=== PATIENT | female | born 1945 | race Caucasian/White ===

== ENCOUNTER 2020-12-02 18:09 | Inpatient (IN) | payer MEDICARE, OTHER ==
[~2020-12-02] VITALS: Ht 162.6 cm; Wt 98.4 kg
[2020-12-02 22:39] LABS: BASOPHILS ABSOLUTE AUTO 0.03 K/mm3 (0.00-0.23); BASOPHILS PERCENT AUTO 0 % (0-2); EOSINOPHILS ABSOLUTE AUTO 0.01 K/mm3 (0.00-0.68); EOSINOPHILS PERCENT AUTO 0 % (0-6); Hematocrit 35.8 % (33.0-51.0); Hemoglobin 11.4 g/dL (11.5-16.0); IMMATURE GRAN ABSOLUTE AUTO 0.04 K/mm3 (0.00-0.10); IMMATURE GRAN PERCENT AUTO 0 % (0-1); LYMPHOCYTES ABSOLUTE AUTO 0.55 K/mm3 (0.84-5.20); LYMPHOCYTES PERCENT AUTO 5 % (21-46); MONOCYTES PERCENT AUTO 4 % (4-13); Mean Corpuscular HGB 31.4 pg (26.0-34.0); Mean Corpuscular HGB Conc 31.8 g/dL (31.5-36.5); Mean Corpuscular Volume 99 fL (80-100); Mean Platelet Volume 9.9 fL (9.1-12.4); NEUTROPHILS ABSOLUTE AUTO 9.88 K/mm3 (1.96-9.15); NEUTROPHILS PERCENT AUTO 91 % (41-73); Platelet Count 255 K/mm3 (150-400); RDW Standard Deviation 47.4 fL (35.1-46.3); Red Blood Cell Count 3.63 M/mm3 (3.80-5.20); White Blood Cell Count 10.91 K/mm3 (4.00-11.30)
[2020-12-02 22:57] LABS: Influenza A, PCR NEGATIVE (NEGATIVE); Influenza B, PCR NEGATIVE (NEGATIVE); Resp Syncytial Virus, PCR NEGATIVE (NEGATIVE); SARS-Cov-2 (COVID-19) PCR, MMC NEGATIVE (NEGATIVE)
[2020-12-02 22:59] LABS: Alanine Aminotransfer (ALT/SGP 17 U/L (12-78); Albumin, Blood 3.8 g/dL (3.4-5.0); Albumin/Globulin Ratio 0.9 (0.8-1.8); Alk Phos 79 U/L (50-136); Anion Gap 8 mmol/L (6-16); Aspartate Aminotrans (AST/SGOT 11 U/L (12-37); Bilirubin, Total 0.5 mg/dL (0.1-1.0); Blood Urea Nitrogen 26 mg/dL (8-24); Bun/Creatinine Ratio 18.8 (12.0-20.0); CO2, Blood 26 mmol/L (21-32); Calcium, Blood 9.6 mg/dL (8.5-10.1); Chloride, Blood 108 mmol/L (98-108); Creatinine, Blood 1.38 mg/dL (0.40-1.00); Globulin, Blood 4.3 g/dL (2.2-4.0); Glomerular Filtration Rate 40 (60-); Glucose, Blood 154 mg/dL (70-99); Potassium, Blood 4.4 mmol/L (3.5-5.5); Sodium, Blood 142 mmol/L (136-145); Total Protein, Blood 8.1 g/dL (6.4-8.2); Troponin I <0.015 ng/mL (0.000-0.040)
--- NOTE | 2020-12-03 03:06 | NUR ---
ADMIT PT ARRIVED FROM PACU ROUGHLY @0255, RECIEVED REPORT FROM DIANA PETERSON. 4 PER SLIDE TRANSFER TO NEW BED. PT RECIEVED LABETALOL & PAIN MEDS IN PACU BEFORE ARRIVING TO FLOOR. ORIENTED PT TO & CALL LIGHT. WILL MONITOR.
[2020-12-03 05:19] LABS: Creatinine, Blood 1.2 mg/dL (0.40-1.00); Potassium, Blood 4.4 mmol/L (3.5-5.5)
--- NOTE | 2020-12-03 06:36 | NUR ---
SHIFT SUMMARY ADMITTED FOR SBO R/T INSICIONAL HERNIA, HAD LAPRASCOPIC REDUCTION THIS SHIFT. POD #0. 3 SMALL INSICIONS TO ABD, TOOK PICS & PLACED IN CHART. AOX3, FORGETFUL @TIMES, STATES SHE HAS MEMORY ISSUES & CAN'T RECALL MEDICATIONS. BP ELEVATED HAS BEEN ELEVATED RANGING 169 SYS-189 SYS, MEDICATED FOR PAIN & BP DECREASED TO 169 SYS, WILL INFORM ONCOMING NURS PT HAS NO PRN BP MEDS & PT DENIES SHE USUALLY TAKES BP MEDS. SPO2 DROPS TO 88% ON 1L c PAIN MEDS, INCREASED O2 TO 2L, ON CONT PULSE OX. PT DENIES DYSPNEA & STATES SHE DOES NOT WEAR O2 OR CPAP @HOME. LUNGS COARSE c NONPRODUCTIVE WET SOUNDING COUGH. TELE NSR HR 90'S. NG TUBE PLACED IN ER TO L NARES BY DR ANDRADE, CURRENTLY CLAMPED. NPO @THIS TIME. MAURICE PLACED IN OR, CLEAR YELLOW URINE. PT REPORTS SHE IS NORMALLY INCONT. W/C BOUND @BASELINE R/T LYMPHEDEMA IN BLE. BLE ARE SWOLLEN, RED & FLAKY, LLE HAS SMALL WOUND, CLEANSED, PLACED BANDAGE & TOOK PIC. CALL LIGHT & BED ALARM IN PLACE.
[2020-12-03] MEDS ORDERED: ALEN70 PO (08:06)
[2020-12-03] MEDS ORDERED: ASPI81CH PO (08:07)
[2020-12-03] MEDS ORDERED: ATOR20 PO (08:07)
[2020-12-03] MEDS ORDERED: FAMO20 PO (08:08)
[2020-12-03] MEDS ORDERED: GABA300 PO (08:08)
[2020-12-03] MEDS ORDERED: B-121000 MC3 PO (08:08)
[2020-12-03] MEDS ORDERED: MULVITA PO (08:09)
[2020-12-03] MEDS ORDERED: TRAZ50 PO (08:10)
[2020-12-03] MEDS ORDERED: OMEP20ER PO (08:10)
--- NOTE | 2020-12-03 10:36 | NUR ---
LEFT MESSAGE FOR DR ANDRADE PER DR WHITTINGTON'S REQUEST ASKING IF WE STILL NEED NGT AND IF IT IS OK TO ADVANCE DIET, AW CALLBACK
--- NOTE | 2020-12-03 19:29 | NUR ---
SHIFT SUMMARY JOHNNY'S POST OP VS WERE STABLE. MAURICE DC'D AT 1630, PT INCONTINENT/CONTINENT. UP TO CHAIR WITH AO1 AND GAIT BELT. LAP SITES ON ABD C/D/I. ON 4L WITH BED MOBILITY AND ACTIVITY. DR ANDRADE CAME BY MID-MORNING AND ORDERED NGT TO LCWS. THIS WAS DONE, GOT 30ML OUT FROM THEN UNTIL HE CAME BACK AT 1430. HE PULLED OUT NGT AT BEDSIDE. STARTED ON CLEARS DIET PER DR ANDRADE, TOLERATING WELL. GOT TYLENOL AND TRAMADOL FOR PAIN TO GOOD EFFECT. DAUGHTER VISITED. CALL LIGHT IN REACH, REPORT GIVEN TO NIGHT NURSE
--- NOTE | 2020-12-04 06:03 | NUR ---
SHIFT SUMMARY NO ACUTE CHANGES TO REPORT THIS SHIFT PT HAS RESTED MOST OF THE NIGHT. PT HAS COMPLAINTS OF ABD X1 THIS SHIFT THAT IS RELEIVED WITH TYLENOL. PT STATES THAT THE PAIN IN HER ABD IS IMPROVING. STILL NO BOWEL MOVEMENT, BUT PT IS PASSING GAS. PT UP TO BS THIS SHIFT. PT IS VERY WEAK AND DECONDITIONED REQUIRING A HEAVY 2 PA WITH GAIT BELT AND FWW. INCONTINENT AT TIMES. NO COMPLAINTS N/V THIS SHIFT. ABD DRESSING INTACT. RESTFUL NIGHT OVERALL. BED IN LOWEST POSITION, CALL LIGHT WITHIN REACH.
--- NOTE | 2020-12-04 17:27 | NUR ---
PT QUITE PLEASANT TODAY. IN TO VISIT TODAY. HEADACHE THIS AM. ABD INCISIONS CDI. [address]. NO NEW CONCERNS NOTED TODAY. PT SITTING IN CHAIR WATCHING TV AND PLAYING Etaphase ON PHONE MUCH OF DAY. BED IN LOW POSITION, CALL LITE IN REACH, CALLS APPROP
--- NOTE | 2020-12-05 05:10 | NUR ---
SISTER SUPERIOR SUMMARY PT A&OX4, FORGETFUL AT TIMES. ABLE TO MAKE NEEDS KNOWN. PLEASANT AND COOPERATIVE TO CARE. PT MEDICATED FOR PAIN PER EMAR. NO C/O CP, SOB, OR N&V. NO ACUTE CHANGES NOTED TO PT. CALM AND RESTED IN BED T/O SHIFT. BED AT LOWEST POSITION. CALL LIGHT WITHIN REACH.
--- NOTE | 2020-12-05 17:17 | NUR ---
PT HAS ABD PAD APPLIED TO LOWER INCISION AFTER DR TOOK OFF STERI STRIPS. SMALL AMOUNT OF DRAINAGE, DOES NOT APPEAR INFECTED. PT NOT REPORTING ANY PAIN OR DISCOMFORT. ABD PAD APPLIED OVER 4X4 GAUGE. CHANGED EACH SHIFT OR PRN. PT CONTINUES TO HAVE 3+ BI LAT EDEMA TO LOWER EXTREMITIES. SHE COMPLAINS WHEN LEGS ARE ELEVATED IN RECLINER BUT IS COMPLIANT. CALL LIGHT WITHIN REACH, WILL CONTINIUE TO MONITOR.
--- NOTE | 2020-12-05 18:18 | NUR ---
ADMIT: 12/02/20 DISCHARGE: DX: Small bowel obstruction CC: FRANCISCO CALL: RESIDENCE: Home with spouse CAREGIVER: Christal Rutledge, Child, Yaniv Wakefield, Spouse / Partner, DX: Anemia, HTN, CKD-stage 3, see list DME: motorized scooter, wheelchair cushion, walker, DM shoes CCM: none HOME HEALTH: [facility]- 2019 SUMMARY: 12/02/20 12/05/[address] Vizcarra, no acute events, tolerated some regular diet, passing flatus, no BM, can discharge post BM. ETA discharge post bm, next couple days?? cp 12/04/[address] Vizcarra and Dr Estrada. no eta for discharge at this time 1: Incarcerated hernia A/P: with small bowel obstruction
--- NOTE | 2020-12-06 03:51 | NUR ---
AGENT BASED MODELER SUMMARY PT A&OX4, ABLE TO MAKE NEEDS KNOWN, PLEASANT AND COOPERATIVE TO CARE. NO ACUTE CHANGES NOTED TO PT THIS SHIFT. PT MEDICATED FOR ABD INCISION PAIN PER EMAR. NO C/O CP, SOB OR N&V. PT CALM AND RESTED IN BED T/O SHIFT. BED AT LOWEST POSITION, CALL LIGHT WITHIN REACH.
[2020-12-06] MEDS ORDERED: ACET325 PO (13:46)
[2020-12-06] MEDS ORDERED: CEPH500 PO (13:48)
[2020-12-06] MEDS ORDERED: TOPI25C PO (13:50)
[2020-12-06] MEDS ORDERED: HYDROCODONE-AC1 EA11 PO (13:59)
[2020-12-06] MEDS ORDERED: TRAM50 PO (13:59)
--- NOTE | 2020-12-06 16:31 | NUR ---
DISCHARGE SUMMARY PT POST OP FOR A LAPAROSCOPIC HERNIA REPAIR. PT A/O X3 AND HAS MOMENTS OF CONFUSION AND HELPLESSNESS. PT A 1-2 ASSIST TO THE BSC WITH A WALKER AND A GB. INCISION SITES ARE C/D/I WITH STERI STRIPS AND GAUZE IN PLACE. MINIMAL BRUISING NOTED. PT DOES NOT C/O PAIN RELATED TO THE HERNIA REPAIR. SHE HAS CHRONIC LYMPHEDEMA AND SWELLING IN HER LEGS THAT IS PAINFUL. SHE ALSO HAS NEUROPATHY. DAUGHTER CAME IN TO BRING PT HOME AT DISCHARGE AND EXPRESSED MANY CONCERNS. SHE EXPRESSED CONCERNS RELATED TO CARING FOR THE PT AT HOME DUE TO FALL RISK AND MOBILITY ISSUES. SHE ALSO EXPRESSED CONCERNS RELATED TO BEING ABLE TO AFFORD PRESCRIPTIONS. MARY JANE SEGURA CAME AND SPOKE TO THE PATIENT AND DAUGHTER. IT WAS DETERMINED THAT O/T RECOMMENDED SNF PLACEMENT AND P/T RECOMMENDED HOME HEALTH. PT'S DAUGHTER STATED THAT "SHE WOULD TAKE THE PATIENT HOME AND FOLLOW UP WITH THE DOCTOR ON THE MATTER." SHE ALSO AGREED TO THE PT RECEIVING HOME HEALTH. MARY JANE RESEARCHED PRESCRIPTION DISCOUNTS FOR PT AND DAUGHTER. PT WENT HOME IN HER MOTORIZED WHEELCHAIR AND DROVE THE WHEELCHAIR HERSELF OUT OF THE HOSPITAL. IV MICKEY'D WNL.
--- NOTE | 2020-12-06 16:37 | NUR ---
ADMIT: 12/02/20 DISCHARGE: 12/06/20 DX: Small bowel obstruction CC: cpeabody FRANCISCO CALL: Met with Reina and daughter RESIDENCE: Home with spouse, daughter and her CAREGIVER: Christal Rutledge, Child, Yaniv Wakefield, Spouse / Partner, DX: Anemia, HTN, CKD-stage 3, see list DME: motorized scooter, wheelchair cushion, walker, DM shoes CCM: none HOME HEALTH: [facility]- 2019 order home health 12/06/20 SUMMARY: 12/02/20 12/06/20 Discharge home with home health, pt ot [facility] contacted. PT rec HH, OT rec snf, explained to daughter that snf not covered by insurance with only OT recommendation. Discussed francisco and care coordination. no needs identifed other than Home health. Follow up appt 1 week francisco. cp 12/05/[address] Vizcarra, no acute events, tolerated some regular diet, passing flatus, no BM, can discharge post BM. ETA discharge post bm, next couple days?? cp 12/04/[address] Vizcarra and Dr Estrada. no eta for discharge at this time 1: Incarcerated hernia A/P: with small bowel obstruction -
--- NOTE | 2020-12-10 19:52 | NUR ---
ADMIT: 12/02/20 DISCHARGE: 12/06/20 DX: Small bowel obstruction CC: cpeabody FRANCISCO CALL: call daughter at home for francisco RESIDENCE: Home with spouse CAREGIVER: Christal Rutledge, Child, Yaniv Wakefield, Spouse / Partner, DX: Anemia, HTN, CKD-stage 3, see list DME: motorized scooter, wheelchair cushion, walker, DM shoes CCM: none HOME HEALTH: [facility] pt ot ordered 12/06/20, note to Summer, received. SUMMARY: 12/02/20 12/06/20 Discharge home with daughter, home health with [facility] ordered. no dme needed. No recommendation for snf at this time by PT. Call daughter at home for francisco
== END 2020-12-06 16:13 | disposition home or self-care (01) | DRG 353 ==
LOC: ER 18:09 → MEDS 22:12 → ENPENDDIS 12-06 11:47 → MEDS 12-06 16:13
PROVIDERS: Physician Assistant; Surgery; ADMIT Internal Medicine
PROC: 0WUF4JZ Supplement Abdominal Wall with Synthetic Substitute, Percutaneous Endoscopic Approach (ICD-10-PCS; principal; 2020-12-02 23:45)
PROC: 0D9670Z Drainage of Stomach with Drainage Device, Via Natural or Artificial Opening (ICD-10-PCS; 2020-12-02 23:45)
DX: K43.0 Incisional hernia with obstruction, without gangrene (principal); J96.01 Acute respiratory failure with hypoxia; K56.609 Unspecified intestinal obstruction, unspecified as to partial versus complete obstruction; N18.30 Chronic kidney disease, stage 3 unspecified; E11.22 Type 2 diabetes mellitus with diabetic chronic kidney disease; I16.0 Hypertensive urgency; I12.9 Hypertensive chronic kidney disease with stage 1 through stage 4 chronic kidney disease, or unspecified chronic kidney disease; I89.0 Lymphedema, not elsewhere classified; M81.0 Age-related osteoporosis without current pathological fracture; Z20.822 Contact with and (suspected) exposure to COVID-19
CPT/HCPCS: 0241U; 36415; 74022; 74176; 80048; 80053; 82947; 83605; 83690; 84484; 85025; 93005; 93010; 94762; 96374; 97110; 97116; 97163; 97166; 97530; 97535; 99285-25; A9270; C1781; J0692; J1100; J1650; J2405; J2704; J3010; J7030; J7120

== ENCOUNTER → 2021-01-15 | Outpatient (CLI) | payer MEDICARE, OTHER ==
[~2021-01-15] MED LIST: ACET325 PO; ALEN70 PO; ASPI81CH PO; ATOR20 PO; B-121000 MC3 PO; CEPH500 PO; FAMO20 PO; GABA300 PO; HYDROCODONE-AC1 EA11 PO; MULVITA PO; OMEP20ER PO; TOPI25C PO; TRAM50 PO; TRAZ50 PO
[2021-01-15 18:13] LABS: Adenovirus F 40/41 Not Detected (NOT DETECT); Astrovirus Not Detected (NOT DETECT); Campylobacter Sp Not Detected (NOT DETECT); Cryptosporidium Not Detected (NOT DETECT); Cyclospora Cayetanensis Not Detected (NOT DETECT); E. Coli O157 Not Detected (NOT DETECT); Entamoeba Histolytica Not Detected (NOT DETECT); Enteroaggregative E. coli-EAEC Not Detected (NOT DETECT); Enteropathogenic E. coli-EPEC Not Detected (NOT DETECT); Enterotoxigenic E. coli-ETEC Not Detected (NOT DETECT); Giardia Lamblia Not Detected (NOT DETECT); Norovirus GI/GII Not Detected (NOT DETECT); Plesiomonas Shigelloides Not Detected (NOT DETECT); Rotavirus A Not Detected (NOT DETECT); Salmonella Sp Not Detected (NOT DETECT); Sapovirus Not Detected (NOT DETECT); Shiga Toxin-prod E. coli-STEC Not Detected (NOT DETECT); Shigella/Enteroin E. coli-EIEC Not Detected (NOT DETECT); Vibrio Cholerae Not Detected (NOT DETECT); Vibrio Sp Not Detected (NOT DETECT); Yersinia Enterocolitica Not Detected (NOT DETECT)
== END | disposition home or self-care (01) ==
LOC: LAB SHORT 14:33
PROVIDERS: Surgery
DX: R19.7 Diarrhea, unspecified (principal)
CPT/HCPCS: 0097U

== ENCOUNTER → 2022-03-18 | Outpatient (CLI) | payer MEDICARE, OTHER ==
[2022-03-18 19:46] LABS: Creatinine, Urine Random 95.2 mg/dL (27.00-270.00); Protein, Urine Random 19.5 mg/dL (0.0-11.9); Protein/Creat Ratio, Ur Random 0.2
== END | disposition home or self-care (01) ==
LOC: LAB SHORT 13:40
PROVIDERS: Internal Medicine Nephrology
DX: N18.32 Chronic kidney disease, stage 3b (principal)
CPT/HCPCS: 82570; 84156

== ENCOUNTER → 2022-07-31 | Outpatient (CLI) | payer MEDICARE, OTHER | END | disposition home or self-care (01) | LOC: LAB 13:47 → LAB SHORT 13:47 | DX: M81.0 Age-related osteoporosis without current pathological fracture (principal) | CPT/HCPCS: 82310; 82570 ==

== ENCOUNTER → 2022-09-14 | Outpatient (CLI) | payer MEDICARE, OTHER ==
[2022-09-14 15:18] LABS: Creatinine, Urine Random 63.5 mg/dL (27.00-270.00); Protein, Urine Random 23.9 mg/dL (0.0-11.9); Protein/Creat Ratio, Ur Random 0.4
== END | disposition home or self-care (01) ==
LOC: LAB 12:10 → LAB SHORT 12:10
PROVIDERS: Internal Medicine Nephrology
DX: N18.32 Chronic kidney disease, stage 3b (principal)
CPT/HCPCS: 82570; 84156

== ENCOUNTER 2022-09-24 01:04 | Day surgery (SDC) | payer MEDICARE, OTHER ==
[2022-09-24] MEDS ORDERED: OXYB5 PO (15:23)
== END 2022-09-24 14:49 | disposition home or self-care (01) ==
LOC: ATC 01:04
DX: I12.9 Hypertensive chronic kidney disease with stage 1 through stage 4 chronic kidney disease, or unspecified chronic kidney disease (principal); D63.1 Anemia in chronic kidney disease; N18.32 Chronic kidney disease, stage 3b; Z88.8 Allergy status to other drugs, medicaments and biological substances; Z87.891 Personal history of nicotine dependence
CPT/HCPCS: 96365; J2916

== ENCOUNTER 2022-09-29 00:47 | Day surgery (SDC) | payer MEDICARE, OTHER ==
[~2022-09-29 00:47] MED LIST changes: +OXYB5 PO
== END 2022-09-29 16:48 | disposition home or self-care (01) ==
LOC: ATC 00:47
DX: I12.9 Hypertensive chronic kidney disease with stage 1 through stage 4 chronic kidney disease, or unspecified chronic kidney disease (principal); D63.1 Anemia in chronic kidney disease; N18.32 Chronic kidney disease, stage 3b; E11.22 Type 2 diabetes mellitus with diabetic chronic kidney disease; Z87.891 Personal history of nicotine dependence; Z88.8 Allergy status to other drugs, medicaments and biological substances
CPT/HCPCS: 96365; J2916

== ENCOUNTER 2022-10-06 00:07 | Day surgery (SDC) | payer MEDICARE, OTHER | END 2022-10-06 15:45 | disposition home or self-care (01) | LOC: ATC 00:07 | DX: I12.9 Hypertensive chronic kidney disease with stage 1 through stage 4 chronic kidney disease, or unspecified chronic kidney disease (principal); N18.32 Chronic kidney disease, stage 3b; D63.1 Anemia in chronic kidney disease; Z88.8 Allergy status to other drugs, medicaments and biological substances; Z87.891 Personal history of nicotine dependence | CPT/HCPCS: 96365; J2916 ==

== ENCOUNTER 2022-10-13 01:36 | Day surgery (SDC) | payer MEDICARE, OTHER | END 2022-10-13 16:10 | disposition home or self-care (01) | LOC: ATC 01:36 | DX: I12.9 Hypertensive chronic kidney disease with stage 1 through stage 4 chronic kidney disease, or unspecified chronic kidney disease (principal); E11.22 Type 2 diabetes mellitus with diabetic chronic kidney disease; N18.32 Chronic kidney disease, stage 3b; D63.1 Anemia in chronic kidney disease; Z87.891 Personal history of nicotine dependence; Z88.8 Allergy status to other drugs, medicaments and biological substances | CPT/HCPCS: 96365; J2916 ==

== ENCOUNTER → 2023-05-14 | Outpatient (CLI) | payer MEDICARE, OTHER | END | disposition home or self-care (01) | LOC: LAB SHORT 14:40 → LAB 14:40 | DX: M79.675 Pain in left toe(s) (principal) | CPT/HCPCS: 84550 ==

== ENCOUNTER 2023-08-07 22:54 | Emergency (ER) | payer MEDICARE, OTHER ==
[~2023-08-07] VITALS: Ht 167.6 cm; Wt 76.2 kg
[2023-08-07 23:31] LABS: BASOPHILS ABSOLUTE AUTO 0.03 K/mm3 (0.00-0.23); BASOPHILS PERCENT AUTO 1 % (0-2); EOSINOPHILS PERCENT AUTO 0 % (0-6); Hematocrit 33.2 % (33.0-51.0); Hemoglobin 10.6 g/dL (11.5-16.0); IMMATURE GRAN ABSOLUTE AUTO 0.01 K/mm3 (0.00-0.10); IMMATURE GRAN PERCENT AUTO 0 % (0-1); LYMPHOCYTES ABSOLUTE AUTO 0.63 K/mm3 (0.84-5.20); LYMPHOCYTES PERCENT AUTO 11 % (21-46); MONOCYTES ABSOLUTE AUTO 0.81 K/mm3 (0.16-1.47); MONOCYTES PERCENT AUTO 14 % (4-13); Mean Corpuscular HGB 31.2 pg (26.0-34.0); Mean Corpuscular HGB Conc 31.9 g/dL (31.5-36.5); Mean Corpuscular Volume 98 fL (80-100); Mean Platelet Volume 9.8 fL (9.1-12.4); NEUTROPHILS ABSOLUTE AUTO 4.39 K/mm3 (1.96-9.15); NEUTROPHILS PERCENT AUTO 75 % (41-73); Platelet Count 190 K/mm3 (150-400); RDW Coefficient Variation 12.8 % (11.7-14.2); RDW Standard Deviation 46.2 fL (35.1-46.3); White Blood Cell Count 5.87 K/mm3 (4.00-11.30)
[2023-08-07 23:57] LABS: Albumin, Blood 3.5 g/dL (3.4-5.0); Albumin/Globulin Ratio 0.9 (0.8-1.8); Bilirubin, Total 0.2 mg/dL (0.1-1.0); Bun/Creatinine Ratio 16.2 (12.0-20.0); Calcium, Blood 9.1 mg/dL (8.5-10.1); Creatinine, Blood 1.54 mg/dL (0.40-1.00); Potassium, Blood 4.3 mmol/L (3.5-5.5); Total Protein, Blood 7.5 g/dL (6.4-8.2)
[2023-08-08 00:29] LABS: Magnesium, Blood 1.6 mg/dL (1.6-2.4)
[2023-08-08] MEDS ORDERED: ALENDRONATE SOD35 MG PO (00:39)
[2023-08-08] MEDS ORDERED: FAMO20 PO (00:39)
[2023-08-08] MEDS ORDERED: OMEP20ER PO (00:39)
[2023-08-08] MEDS ORDERED: Calcium Acetat667 MG (00:40)
[2023-08-08] MEDS ORDERED: ATOR10 PO (00:40)
[2023-08-08] MEDS ORDERED: B-12500 MC2 (00:41)
[2023-08-08] MEDS ORDERED: IRON18 MG (00:41)
[2023-08-08 00:42] LABS: Base Excess Venous -3.4 mmol/L; Bicarbonate Venous 21.4 mmol/L (24.0-30.0); PCO2 Venous 41.2 mmHg (38-42); pH Blood Venous 7.34 (7.34-7.37)
[2023-08-08] MEDS ORDERED: HYDR1TAB94 PO (00:42)
[2023-08-08 01:24] LABS: Influenza A, PCR NEGATIVE (NEGATIVE); Influenza B, PCR NEGATIVE (NEGATIVE); Resp Syncytial Virus, PCR NEGATIVE (NEGATIVE)
[2023-08-08 01:31] LABS: SARS-Cov-2 (COVID-19) PCR, MMC POSITIVE (NEGATIVE)
[2023-08-08 09:02] LABS: Source, Urine Clean Catch
[2023-08-08 09:15] LABS: Appearance, Urine Clear (Clear); Bilirubin, Urine Neg (Neg); Blood, Urine 1+ (Neg); Color, Urine Yellow (P-Yellow); Glucose Qualitative, Urine Neg (Neg); Ketones, Urine Neg (Neg); Leukocyte Esterase, Urine Neg (Neg); Nitrite, Urine Pos (Neg); Protein, Urine 1+ (Neg); Urobilinogen, Urine NORM (Normal)
[2023-08-08 09:38] LABS: Bacteria Many /hpf
[2023-08-08 09:39] LABS: Red Blood Cells, Urine 0-2 /hpf (0-2); White Blood Cells, Urine 0-2 /hpf (0-5)
[2023-08-08 09:40] LABS: Squamous Epithelial Cells Few /hpf (Few)
[2023-08-08 09:41] LABS: Hyaline Casts 0-2 /lpf (0-2)
[2023-08-08] MEDS ORDERED: THERA-D2000 UNIT PO (09:56)
[2023-08-08] MEDS ORDERED: CALCIUM 600-VI1 EAC3 PO (09:58)
[2023-08-08 14:15] VITALS: BP 128/62
[2023-08-08] MEDS ORDERED: CEPH500 PO (14:44)
== END 2023-08-08 15:31 | disposition home or self-care (01) ==
LOC: ER 22:54
PROVIDERS: Student in an Organized Health Care Education/Training Program
DX: U07.1 COVID-19 (principal); I89.0 Lymphedema, not elsewhere classified; Z88.8 Allergy status to other drugs, medicaments and biological substances; Z88.1 Allergy status to other antibiotic agents; Z79.899 Other long term (current) drug therapy; Z79.82 Long term (current) use of aspirin; E11.9 Type 2 diabetes mellitus without complications
CPT/HCPCS: 0241U; 70450; 80053; 81001; 82803; 83735; 84484; 85025; 87077; 87086; 87186; 93005; 93010; 97110; 97162; 97530; 99285-25; A9270

== ENCOUNTER 2023-09-09 01:35 | Emergency (ER) | payer MEDICARE, OTHER ==
[~2023-09-09] VITALS: Ht 167.6 cm; Wt 76.2 kg
[~2023-09-09 01:35] MED LIST changes: +ALENDRONATE SOD35 MG PO; +ATOR10 PO; +B-12500 MC2; +CALCIUM 600-VI1 EAC3 PO; +Calcium Acetat667 MG; +HYDR1TAB94 PO; +IRON18 MG; +THERA-D2000 UNIT PO
[2023-09-09 01:42] VITALS: BP 137/83
== END 2023-09-09 03:41 | disposition home or self-care (01) ==
LOC: ER 01:35
DX: S00.03XA Contusion of scalp, initial encounter (principal); W01.10XA Fall on same level from slipping, tripping and stumbling with subsequent striking against unspecified object, initial encounter; Z88.8 Allergy status to other drugs, medicaments and biological substances; Z79.899 Other long term (current) drug therapy; Z79.82 Long term (current) use of aspirin; E11.9 Type 2 diabetes mellitus without complications
CPT/HCPCS: 70450; 93005; 93010; 99284-25

== ENCOUNTER → 2024-04-10 | Outpatient (CLI) | payer OTHER ==
[2024-04-10 18:21] LABS: Creatinine, Urine Random 91.2 mg/dL (27.00-270.00); Microalb/Creat Ratio UR, Rand 8.377 mg/g (0.000-30.000); Microalbumin, Random Urine 7.64 mg/L (0.000-20.000)
[2024-04-10 18:26] LABS: Creatinine, Urine Random 94.4 mg/dL (27.00-270.00); Protein, Urine Random 20.6 mg/dL (0.0-11.9); Protein/Creat Ratio, Ur Random 0.2
== END | disposition home or self-care (01) ==
LOC: LAB SHORT 12:40 → LAB 12:40
PROVIDERS: Hospitalist; Physician Assistant
DX: E11.22 Type 2 diabetes mellitus with diabetic chronic kidney disease (principal); N18.32 Chronic kidney disease, stage 3b; E11.69 Type 2 diabetes mellitus with other specified complication
CPT/HCPCS: 82043; 82570; 84156

== ENCOUNTER 2024-04-27 01:51 | Day surgery (SDC) | payer OTHER ==
[2024-04-27] MEDS ORDERED: Epoetin Alfa-EPBX 10,000 Unit/ML 1ML Vial SC SCH (06:00)
[2024-04-27 15:08] VITALS: BP 134/55
[2024-04-27] MEDS ORDERED: Acetaminophen650 M1 PO (16:28)
[2024-04-27] MEDS ORDERED: LOKELMA10 GM PO (16:29)
== END 2024-04-27 15:33 | disposition home or self-care (01) ==
LOC: ATC 01:51
DX: D63.1 Anemia in chronic kidney disease (principal); E11.22 Type 2 diabetes mellitus with diabetic chronic kidney disease; I12.9 Hypertensive chronic kidney disease with stage 1 through stage 4 chronic kidney disease, or unspecified chronic kidney disease; N18.32 Chronic kidney disease, stage 3b; K21.9 Gastro-esophageal reflux disease without esophagitis; E78.2 Mixed hyperlipidemia; M81.0 Age-related osteoporosis without current pathological fracture; Z79.899 Other long term (current) drug therapy; Z88.8 Allergy status to other drugs, medicaments and biological substances; Z87.891 Personal history of nicotine dependence
CPT/HCPCS: 96372; Q5106

== ENCOUNTER 2024-05-29 03:06 | Day surgery (SDC) | payer OTHER ==
[~2024-05-29 03:06] MED LIST changes: +Acetaminophen650 M1 PO; +LOKELMA10 GM PO
[2024-05-29] MEDS ORDERED: Epoetin Alfa-EPBX 10,000 Unit/ML 1ML Vial SC SCH (07:00)
[2024-05-29 14:02] VITALS: BP 146/64
== END 2024-05-29 14:10 | disposition home or self-care (01) ==
LOC: ATC 03:06
DX: N18.4 Chronic kidney disease, stage 4 (severe) (principal); D63.1 Anemia in chronic kidney disease; Z87.891 Personal history of nicotine dependence; Z88.8 Allergy status to other drugs, medicaments and biological substances
CPT/HCPCS: 96372; Q5106

== ENCOUNTER → 2024-06-16 | Outpatient (CLI) | payer OTHER ==
[2024-06-16 12:12] LABS: Source, Urine Voided
[2024-06-16 13:09] LABS: Appearance, Urine Hazy (Clear); Bilirubin, Urine Neg (Neg); Blood, Urine Neg (Neg); Color, Urine Yellow (P-Yellow); Glucose Qualitative, Urine Neg (Neg); Ketones, Urine Neg (Neg); Leukocyte Esterase, Urine 2+ (Neg); Nitrite, Urine Pos (Neg); Protein, Urine 1+ (Neg); Urobilinogen, Urine NORM (Normal)
[2024-06-16 13:21] LABS: Bacteria Many /hpf; Red Blood Cells, Urine Not Seen /hpf (0-2); Squamous Epithelial Cells Few /hpf (Few)
== END | disposition home or self-care (01) ==
LOC: LAB 10:00 → LAB SHORT 10:00
PROVIDERS: Hospitalist
DX: N18.4 Chronic kidney disease, stage 4 (severe) (principal)
CPT/HCPCS: 81001; 87077; 87086; 87186

== ENCOUNTER 2024-06-26 03:07 | Day surgery (SDC) | payer OTHER ==
[2024-06-26] MEDS ORDERED: Epoetin Alfa-EPBX 10,000 Unit/ML 1ML Vial SC SCH (06:00)
[2024-06-26 14:00] VITALS: BP 158/65
== END 2024-06-26 14:05 | disposition home or self-care (01) ==
LOC: ATC 03:07
DX: I12.9 Hypertensive chronic kidney disease with stage 1 through stage 4 chronic kidney disease, or unspecified chronic kidney disease (principal); D63.1 Anemia in chronic kidney disease; E11.22 Type 2 diabetes mellitus with diabetic chronic kidney disease; N18.32 Chronic kidney disease, stage 3b; E78.2 Mixed hyperlipidemia; M81.0 Age-related osteoporosis without current pathological fracture; Z79.899 Other long term (current) drug therapy; Z88.8 Allergy status to other drugs, medicaments and biological substances; Z87.891 Personal history of nicotine dependence
CPT/HCPCS: 96372; Q5106

== ENCOUNTER 2024-07-24 02:06 | Day surgery (SDC) | payer OTHER ==
[2024-07-24] MEDS ORDERED: Epoetin Alfa-EPBX 10,000 Unit/ML 1ML Vial SC SCH (06:00)
[2024-07-24 13:52] VITALS: BP 158/74
== END 2024-07-24 14:08 | disposition home or self-care (01) ==
LOC: ATC 02:06
DX: I12.9 Hypertensive chronic kidney disease with stage 1 through stage 4 chronic kidney disease, or unspecified chronic kidney disease (principal); E11.22 Type 2 diabetes mellitus with diabetic chronic kidney disease; N18.4 Chronic kidney disease, stage 4 (severe); D63.1 Anemia in chronic kidney disease; E78.2 Mixed hyperlipidemia; Z87.891 Personal history of nicotine dependence; Z79.82 Long term (current) use of aspirin; Z79.899 Other long term (current) drug therapy; Z88.8 Allergy status to other drugs, medicaments and biological substances; Z90.710 Acquired absence of both cervix and uterus; Z90.49 Acquired absence of other specified parts of digestive tract
CPT/HCPCS: 96372; Q5106

== ENCOUNTER 2024-08-21 03:07 | Day surgery (SDC) | payer OTHER ==
[2024-08-21] MEDS ORDERED: Epoetin Alfa-EPBX 10,000 Unit/ML 1ML Vial SC SCH (06:00)
[2024-08-21 14:14] VITALS: BP 161/63
== END 2024-08-21 14:22 | disposition home or self-care (01) ==
LOC: ATC 03:07
DX: I12.9 Hypertensive chronic kidney disease with stage 1 through stage 4 chronic kidney disease, or unspecified chronic kidney disease (principal); E11.22 Type 2 diabetes mellitus with diabetic chronic kidney disease; N18.4 Chronic kidney disease, stage 4 (severe); D63.1 Anemia in chronic kidney disease; E78.2 Mixed hyperlipidemia; M81.0 Age-related osteoporosis without current pathological fracture; Z79.83 Long term (current) use of bisphosphonates; Z79.899 Other long term (current) drug therapy; Z90.710 Acquired absence of both cervix and uterus; Z90.49 Acquired absence of other specified parts of digestive tract; Z87.891 Personal history of nicotine dependence
CPT/HCPCS: 96372; Q5106

== ENCOUNTER 2024-09-20 03:31 | Day surgery (SDC) | payer OTHER ==
[2024-09-20] MEDS ORDERED: Epoetin Alfa-EPBX 10,000 Unit/ML 1ML Vial SC SCH (06:00)
[2024-09-20 13:53] VITALS: BP 154/65
== END 2024-09-20 14:01 | disposition home or self-care (01) ==
LOC: ATC 03:31
DX: I12.9 Hypertensive chronic kidney disease with stage 1 through stage 4 chronic kidney disease, or unspecified chronic kidney disease (principal); E11.22 Type 2 diabetes mellitus with diabetic chronic kidney disease; N18.4 Chronic kidney disease, stage 4 (severe); D63.1 Anemia in chronic kidney disease; K21.9 Gastro-esophageal reflux disease without esophagitis; E78.2 Mixed hyperlipidemia; Z87.891 Personal history of nicotine dependence; Z88.8 Allergy status to other drugs, medicaments and biological substances; Z79.899 Other long term (current) drug therapy
CPT/HCPCS: 96372; Q5106

== ENCOUNTER 2024-09-26 17:43 | Emergency (ER) | payer OTHER ==
[~2024-09-26] VITALS: Ht 165.1 cm; Wt 99.8 kg
[2024-09-26 17:54] VITALS: BP 179/74
== END 2024-09-26 21:28 | disposition home or self-care (01) ==
LOC: ER 17:43
DX: S91.112A Laceration without foreign body of left great toe without damage to nail, initial encounter (principal); E11.42 Type 2 diabetes mellitus with diabetic polyneuropathy; M81.0 Age-related osteoporosis without current pathological fracture; Z88.8 Allergy status to other drugs, medicaments and biological substances; Z79.83 Long term (current) use of bisphosphonates; Z79.82 Long term (current) use of aspirin; Z79.899 Other long term (current) drug therapy; W22.8XXA Striking against or struck by other objects, initial encounter
CPT/HCPCS: 12001; 73630; 99283-25

== ENCOUNTER 2024-10-18 01:36 | Day surgery (SDC) | payer OTHER ==
[2024-10-18] MEDS ORDERED: Epoetin Alfa-EPBX 10,000 Unit/ML 1ML Vial SC SCH (06:00)
[2024-10-18 15:08] VITALS: BP 161/77
== END 2024-10-18 15:08 | disposition home or self-care (01) ==
LOC: ATC 01:36
DX: E11.22 Type 2 diabetes mellitus with diabetic chronic kidney disease (principal); D63.1 Anemia in chronic kidney disease; I12.9 Hypertensive chronic kidney disease with stage 1 through stage 4 chronic kidney disease, or unspecified chronic kidney disease; N18.4 Chronic kidney disease, stage 4 (severe); E78.2 Mixed hyperlipidemia; M81.0 Age-related osteoporosis without current pathological fracture; Z88.8 Allergy status to other drugs, medicaments and biological substances; Z87.891 Personal history of nicotine dependence
CPT/HCPCS: 96372; Q5106

== ENCOUNTER 2025-02-13 09:46 | Emergency (ER) | payer OTHER ==
[~2025-02-13] VITALS: Ht 167.6 cm; Wt 75.3 kg
[2025-02-13] MEDS ORDERED: Ibuprofen 600 MG Tab PO ONE (09:55)
[2025-02-13] MEDS ORDERED: Acetaminophen 500 MG Tab PO ONE (09:55)
[2025-02-13 12:11] LABS: BASOPHILS ABSOLUTE AUTO 0.02 K/mm3 (0.00-0.23); BASOPHILS PERCENT AUTO 0 % (0-2); EOSINOPHILS ABSOLUTE AUTO 0.07 K/mm3 (0.00-0.68); EOSINOPHILS PERCENT AUTO 2 % (0-6); Hemoglobin 7.4 g/dL (11.5-16.0); IMMATURE GRAN ABSOLUTE AUTO 0.03 K/mm3 (0.00-0.10); IMMATURE GRAN PERCENT AUTO 1 % (0-1); LYMPHOCYTES ABSOLUTE AUTO 0.62 K/mm3 (0.84-5.20); LYMPHOCYTES PERCENT AUTO 13 % (21-46); MONOCYTES ABSOLUTE AUTO 0.35 K/mm3 (0.16-1.47); MONOCYTES PERCENT AUTO 8 % (4-13); Mean Corpuscular HGB Conc 30.8 g/dL (31.5-36.5); Mean Corpuscular Volume 104 fL (80-100); Mean Platelet Volume 9.6 fL (9.1-12.4); NEUTROPHILS ABSOLUTE AUTO 3.54 K/mm3 (1.96-9.15); NEUTROPHILS PERCENT AUTO 77 % (41-73); Platelet Count 199 K/mm3 (150-400); RDW Coefficient Variation 14.6 % (11.7-14.2); RDW Standard Deviation 55.2 fL (35.1-46.3); Red Blood Cell Count 2.31 M/mm3 (3.80-5.20); White Blood Cell Count 4.63 K/mm3 (4.00-11.30)
[2025-02-13 12:41] LABS: Bun/Creatinine Ratio 26.2 (12.0-20.0); Calcium, Blood 8.7 mg/dL (8.5-10.1); Creatinine, Blood 1.45 mg/dL (0.40-1.00); Potassium, Blood 5.7 mmol/L (3.5-5.5)
[2025-02-13] MEDS ORDERED: Insulin Regular 100 Unit/ML 1ML Dose IV ONE (13:05)
[2025-02-13] MEDS ORDERED: Dextrose 50% 50 ML Syringe IV ONE (13:05)
[2025-02-13] MEDS ORDERED: Albuterol 2.5 MG/3 ML VIAL INH SCH (13:05)
[2025-02-13] MEDS ORDERED: Sodium Zirconium Cyclosilicate 10 GM Packet PO ONE (13:05)
[2025-02-13] MEDS ORDERED: Furosemide 10 MG/ML 4ML Vial IV ONE (13:05)
[2025-02-13 14:07] LABS: Source, Urine Foley catheter
[2025-02-13 14:15] LABS: Appearance, Urine Clear (Clear); Bilirubin, Urine Neg (Neg); Blood, Urine Neg (Neg); Color, Urine Yellow (P-Yellow); Glucose Qualitative, Urine Neg (Neg); Ketones, Urine Neg (Neg); Leukocyte Esterase, Urine Neg (Neg); Nitrite, Urine Pos (Neg); Protein, Urine 2+ (Neg); Urobilinogen, Urine NORM (Normal)
[2025-02-13 14:38] LABS: Red Blood Cells, Urine 0-2 /hpf (0-2); Yeast/Fungi Urine Few /hpf
[2025-02-13 14:39] LABS: Bacteria Many /hpf; Squamous Epithelial Cells Few /hpf (Few)
[2025-02-13 16:46] LABS: Bun/Creatinine Ratio 24.4 (12.0-20.0); Calcium, Blood 8.6 mg/dL (8.5-10.1); Creatinine, Blood 1.56 mg/dL (0.40-1.00); Potassium, Blood 4.7 mmol/L (3.5-5.5)
[2025-02-13 17:00] VITALS: BP 113/72
== END 2025-02-13 18:20 | disposition home or self-care (01) ==
LOC: ER 09:46
PROVIDERS: Emergency Medicine
DX: S72.492A Other fracture of lower end of left femur, initial encounter for closed fracture (principal); M97.12XA Periprosthetic fracture around internal prosthetic left knee joint, initial encounter; W18.30XA Fall on same level, unspecified, initial encounter; D64.9 Anemia, unspecified; E87.5 Hyperkalemia; E11.9 Type 2 diabetes mellitus without complications; Z79.899 Other long term (current) drug therapy; Z88.8 Allergy status to other drugs, medicaments and biological substances; Z79.82 Long term (current) use of aspirin
CPT/HCPCS: 51702; 70450; 71045; 72125; 73502; 73560-LT; 80048; 81001; 85025; 87077; 87086; 87186; 93005; 93010; 94644; 94664; 96374; 96375; 99285-25; A9270; J1815; J1938

== ENCOUNTER 2025-06-12 17:57 | Emergency (ER) | payer OTHER ==
[~2025-06-12] VITALS: Ht 162.6 cm; Wt 90.7 kg
[~2025-06-12 17:57] MED LIST changes: +Aspir 8181 MG PO; +BISA10S PR; +FURO20 PO; +LIDO700A20 TOP; +OLME20 PO; +SENN187 PO; +VITAMIN B-122000 MC1 PO; +VITAMIN D5000 UNIT PO
[2025-06-12 18:44] LABS: BASOPHILS ABSOLUTE AUTO 0.02 K/mm3 (0.00-0.23); BASOPHILS PERCENT AUTO 0 % (0-2); EOSINOPHILS ABSOLUTE AUTO 0.16 K/mm3 (0.00-0.68); EOSINOPHILS PERCENT AUTO 3 % (0-6); Hematocrit 31.8 % (33.0-51.0); Hemoglobin 10.1 g/dL (11.5-16.0); IMMATURE GRAN ABSOLUTE AUTO 0.01 K/mm3 (0.00-0.10); IMMATURE GRAN PERCENT AUTO 0 % (0-1); LYMPHOCYTES ABSOLUTE AUTO 1.19 K/mm3 (0.84-5.20); LYMPHOCYTES PERCENT AUTO 22 % (21-46); MONOCYTES ABSOLUTE AUTO 0.55 K/mm3 (0.16-1.47); MONOCYTES PERCENT AUTO 10 % (4-13); Mean Corpuscular HGB Conc 31.8 g/dL (31.5-36.5); Mean Corpuscular Volume 91 fL (80-100); NEUTROPHILS ABSOLUTE AUTO 3.53 K/mm3 (1.96-9.15); NEUTROPHILS PERCENT AUTO 65 % (41-73); NRBC ABSOLUTE 0.00 K/mm3 (0.00-0.02); NRBC Auto 0.0 /100 WBC (0.0-0.2); Platelet Count 236 K/mm3 (150-400); RDW Coefficient Variation 15.3 % (11.7-14.2); RDW Standard Deviation 50.9 fL (35.1-46.3)
[2025-06-12 18:59] LABS: Alanine Aminotransfer (ALT/SGP 10.0 U/L (12-78); Albumin, Blood 3.5 g/dL (3.4-5.0); Albumin/Globulin Ratio 0.9 (0.8-1.8); Anion Gap 7.0 mmol/L (3-11); Aspartate Aminotrans (AST/SGOT 11.0 U/L (12-37); Bilirubin, Total 0.3 mg/dL (0.1-1.0); Blood Urea Nitrogen 36.0 mg/dL (8-24); CO2, Blood 21.0 mmol/L (21-32); Calcium, Blood 8.2 mg/dL (8.5-10.1); Chloride, Blood 115.0 mmol/L (98-108); Creatinine, Blood 1.87 mg/dL (0.40-1.00); Globulin, Blood 3.7 g/dL (2.2-4.0); Glucose, Blood 101.0 mg/dL (70-99); Potassium, Blood 5.1 mmol/L (3.5-5.5); Sodium, Blood 138.0 mmol/L (136-145); Total Protein, Blood 7.2 g/dL (6.4-8.2)
[2025-06-13] MEDS ORDERED: NS 1,000 ML IV SCH (02:00)
[2025-06-13 02:54] LABS: Source, Urine Clean Catch
[2025-06-13 03:03] LABS: Bilirubin, Urine Neg (Neg); Glucose Qualitative, Urine Neg (Neg); Ketones, Urine 1+ (Neg); Leukocyte Esterase, Urine Neg (Neg); Protein, Urine 2+ (Neg); Specific Gravity, Urine 1.010 (1.003-1.022); Urobilinogen, Urine NORM (Normal)
[2025-06-13 03:10] LABS: Color, Urine Yellow (P-Yellow)
[2025-06-13 03:12] LABS: Red Blood Cells, Urine 0-2 /hpf (0-2)
[2025-06-13 04:12] VITALS: BP 165/73
== END 2025-06-13 06:35 | disposition home or self-care (01) ==
LOC: ER 17:57
PROVIDERS: Emergency Medicine; Student in an Organized Health Care Education/Training Program
DX: R10.84 Generalized abdominal pain (principal); E11.9 Type 2 diabetes mellitus without complications; G47.33 Obstructive sleep apnea (adult) (pediatric); Z79.899 Other long term (current) drug therapy; Z79.82 Long term (current) use of aspirin; Z88.8 Allergy status to other drugs, medicaments and biological substances
CPT/HCPCS: 74177; 80053; 81001; 83605; 83690; 85025; 87077; 87086; 87186; 93005; 93010; 99284-25; A9270; J7030; Q9967

== ENCOUNTER → 2025-07-24 | Outpatient (CLI) | payer OTHER ==
[2025-07-24 12:46] LABS: BASOPHILS ABSOLUTE AUTO 0.02 K/mm3 (0.00-0.23); BASOPHILS PERCENT AUTO 1 % (0-2); EOSINOPHILS ABSOLUTE AUTO 0.21 K/mm3 (0.00-0.68); EOSINOPHILS PERCENT AUTO 5 % (0-6); Hematocrit 27.3 % (33.0-51.0); Hemoglobin 8.5 g/dL (11.5-16.0); IMMATURE GRAN ABSOLUTE AUTO 0.01 K/mm3 (0.00-0.10); IMMATURE GRAN PERCENT AUTO 0 % (0-1); LYMPHOCYTES ABSOLUTE AUTO 1.04 K/mm3 (0.84-5.20); LYMPHOCYTES PERCENT AUTO 24 % (21-46); MONOCYTES ABSOLUTE AUTO 0.41 K/mm3 (0.16-1.47); MONOCYTES PERCENT AUTO 9 % (4-13); Mean Corpuscular HGB Conc 31.1 g/dL (31.5-36.5); Mean Corpuscular Volume 94 fL (80-100); NEUTROPHILS ABSOLUTE AUTO 2.71 K/mm3 (1.96-9.15); NEUTROPHILS PERCENT AUTO 62 % (41-73); NRBC ABSOLUTE 0.00 K/mm3 (0.00-0.02); NRBC Auto 0.0 /100 WBC (0.0-0.2); Platelet Count 209 K/mm3 (150-400); RDW Coefficient Variation 16.0 % (11.7-14.2); RDW Standard Deviation 55.8 fL (35.1-46.3)
[2025-07-24 12:57] LABS: Alanine Aminotransfer (ALT/SGP 10.0 U/L (12-78); Albumin, Blood 2.9 g/dL (3.4-5.0); Albumin/Globulin Ratio 0.8 (0.8-1.8); Anion Gap 13.0 mmol/L (3-11); Aspartate Aminotrans (AST/SGOT 14.0 U/L (12-37); Bilirubin, Total 0.3 mg/dL (0.1-1.0); Blood Urea Nitrogen 32.0 mg/dL (8-24); CO2, Blood 22.0 mmol/L (21-32); Calcium, Blood 8.2 mg/dL (8.5-10.1); Chloride, Blood 109.0 mmol/L (98-108); Creatinine, Blood 1.77 mg/dL (0.40-1.00); Globulin, Blood 3.5 g/dL (2.2-4.0); Glucose, Blood 115.0 mg/dL (70-99); Potassium, Blood 4.0 mmol/L (3.5-5.5); Sodium, Blood 140.0 mmol/L (136-145); Total Protein, Blood 6.4 g/dL (6.4-8.2)
[2025-07-24 19:25] LABS: Campylobacter Sp Not Detected (NOT DETECT); Enteroaggregative E. coli-EAEC Not Detected (NOT DETECT); Salmonella Sp Not Detected (NOT DETECT); Vibrio Sp Not Detected (NOT DETECT)
[2025-07-24 19:26] LABS: E. Coli O157 Not Detected (NOT DETECT); Enteropathogenic E. coli-EPEC Not Detected (NOT DETECT); Enterotoxigenic E. coli-ETEC Not Detected (NOT DETECT); Shiga Toxin-prod E. coli-STEC Not Detected (NOT DETECT); Shigella/Enteroin E. coli-EIEC Not Detected (NOT DETECT)
== END ==
LOC: LAB 12:41 → LAB SHORT 12:41
PROVIDERS: Chiropractor
DX: R19.8 Other specified symptoms and signs involving the digestive system and abdomen (principal); R19.7 Diarrhea, unspecified
CPT/HCPCS: 80053; 83690; 85025; 87324; 87507